=== PATIENT | male | born 2000 | race Two or more races ===

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

== ENCOUNTER 2022-04-01 14:34 | Inpatient (IN) | payer BC ==
[2022-04-01] MEDS ORDERED: ONDANSETRON 4 MG/2 ML VIAL ONE ×2 (14:40→16:17)
[2022-04-01] MEDS ORDERED: ACETAMINOPHEN 1000 MG/100 ML BAG IVPB ONE (14:54)
[2022-04-01] MEDS ORDERED: morphine CARPU-JECT 4 MG/1 ML DISP.SYRIN IVPUSH ONE (14:58)
[2022-04-01] MEDS ORDERED: morphine SULFATE 4 MG/ML VIAL ONE (15:01)
[2022-04-01] MEDS ORDERED: ACETAMINOPHEN INJECTION 100 ML IVPB ONE (15:01)
[2022-04-01] MEDS ORDERED: SODIUM CHLORIDE 0.9% 500 ML INFUS.BAG IV ONE ×2 (15:09→16:17)
[2022-04-01] MEDS ORDERED: HYDROmorphone HCL CARPU-JECT 2 MG/1 ML DISP.SYRIN IVPUSH ONE ×3 (15:23→20:43)
[2022-04-01] MEDS ORDERED: HYDROmorphone HCl 2 MG/ML VIAL ONE ×4 (15:35→20:43)
[2022-04-01 15:46] LABS: CHLORIDE 99 mmol/L (98-107); SODIUM 134 mmol/L (136-145)
[2022-04-01 15:50] LABS: ANION GAP 9 MMOL/L (8-16); CO2 25 mmol/L (21-32); MAGNESIUM 1.9 mg/dL (1.8-2.4)
[2022-04-01 15:53] LABS: GLUCOSE,RANDOM 250 mg/dL (74-106)
[2022-04-01 15:54] LABS: CREATININE 1.3 mg/dL (0.55-1.3); PHOSPHOROUS 2.6 mg/dL (2.5-4.9)
[2022-04-01 15:56] LABS: LDL CHOLESTEROL (ONLY SJRH) 85 mg/dL (5-100)
[2022-04-01] MEDS ORDERED: ONDANSETRON 4 MG/2 ML VIAL IVPUSH ONE (16:15)
[2022-04-01] MEDS ORDERED: LACTATED RINGERS SOLUTION 1,000 ML/1,000 ML INFUS.BAG IV STA (16:17)
[2022-04-01 16:33] LABS: ALBUMIN 4.2 g/dl (3.4-5.0); ALK PHOS 90 U/L (45-117); BILIRUBIN,TOTAL 1.2 mg/dL (0.2-1); BLOOD UREA NITROGEN 11.6 mg/dL (7-18); CHOLESTEROL 324 mg/dL (50-200); HDL CHOLESTEROL 32 mg/dL (40-60); LIPASE 14630 U/L (73-393); TOT PROT 7.8 g/dl (6.4-8.2); TRIGLYCERIDES > 4000 mg/dL (0-150)
[2022-04-01] MEDS ORDERED: CALCIUM GLUCONATE 10% - 1,000 MG/10 ML VIAL IVPB ONE (16:44)
[2022-04-01] MEDS ORDERED: LACTATED RINGERS SOLUTION 1,000 ML/1,000 ML INFUS.BAG IV SCH (16:45)
[2022-04-01] MEDS ORDERED: DEXTROSE 50%-WATER 25 GM/50 ML DISP.SYRIN IVPUSH PRN (16:58)
[2022-04-01] MEDS ORDERED: INSULIN REGULAR HUMAN 100 UNITS/ML *VIAL* (FOR IVP) IVPUSH ONE (16:58)
[2022-04-01] MEDS ORDERED: CALCIUM GLUCONATE 10% - 1,000 MG/10 ML VIAL ONE (17:07)
[2022-04-01] MEDS: INSULIN REGULAR 100 UNITS in SODIUM CHLORIDE 99 ML IVPB SCH ×2 (17:19→17:47)
[2022-04-01 17:25] LABS: BASO % 0.4 % (0-2.0); EOS % 0.9 % (0-4.5); HEMATOCRIT 41.1 % (35.4-49); HEMOGLOBIN 13.1 GM/dL (11.7-16.9); LYMPH % 31.4 % (8-40); MCHC 31.8 g/dl (32.0-35.9); MEAN CELL VOLUME 60.3 fl (80-96); MONO % 8.5 % (3.8-10.2); NEUT % 58.8 % (42.8-82.8); RBC 6.81 M/mm3 (4.00-5.60); RDW 17.4 % (11.9-15.9)
[2022-04-01] MEDS ORDERED: INSULIN REGULAR 100 UNITS in SODIUM CHLORIDE 99 ML IVPB SCH (17:30)
[2022-04-01] MEDS: D5-LR+20 MEQ KCL - 20 MEQ/1,000 ML INFUS.BAG IV SCH ×2 (17:38→21:55)
[2022-04-01 17:39] LABS: MCH 19.2 pg (25.7-33.7); WHITE BLOOD COUNT 16.6 K/mm3 (4.0-10.0)
[2022-04-01 17:40] LABS: MEAN PLT VOLUME 9.1 fl (7.5-11.1); PLATELET COUNT 376 10^3/uL (134-434)
[2022-04-01] MEDS: HYDROmorphone HCl 2 MG/ML VIAL IVPUSH PRN ×2 (18:17→23:00)
[2022-04-01 19:02] LABS: PH,URINE 6.5 (5.0-8.0); URINE APPEARANCE CLEAR; URINE BILIRUBIN NEGATIVE (NEGATIVE); URINE COLOR YELLOW; URINE GLUCOSE (UA) NEGATIVE (NEGATIVE); URINE KETONE NEGATIVE (NEGATIVE); URINE LEUK ESTERASE NEGATIVE (NEGATIVE); URINE NITRITE NEGATIVE (NEGATIVE); URINE PROTEIN TRACE (NEGATIVE); URINE UROBILINOGEN 0.2 mg/dL (0.2-1.0)
[2022-04-01 20:13] LABS: ANISOCYTOSIS 3+; MACROCYTOSIS 1+; OVALOCYTE 1+; PLATELET ESTIMATE NORMAL
[2022-04-01 21:59] LABS: CHLORIDE 101 mmol/L (98-107); SODIUM 133 mmol/L (136-145)
[2022-04-01 22:02] LABS: ANION GAP 9 MMOL/L (8-16); CO2 23 mmol/L (21-32); GLUCOSE,RANDOM 258 mg/dL (74-106)
[2022-04-01 22:05] LABS: CREATININE 0.8 mg/dL (0.55-1.3)
[2022-04-01 22:14] LABS: ALBUMIN 3.4 g/dl (3.4-5.0); ALK PHOS 74 U/L (45-117); BLOOD UREA NITROGEN 9.5 mg/dL (7-18); TOT PROT 6.7 g/dl (6.4-8.2)
[2022-04-01] MEDS: ENOXAPARIN NA (PORCINE) 40 MG/0.4 ML DISP.SYRIN SQ SCH (22:19)
[2022-04-01] MEDS: CHLORHEXIDINE GLUCONATE 4% CLEANSER FOR DECOLONIZATION TP SCH (22:20)
[2022-04-01] MEDS: MUPIROCIN 2% TOPICAL OINTMENT FOR DECOLONIZATION NS SCH (23:14)
[2022-04-01 23:23] LABS: TRIGLYCERIDES > 4000 mg/dL (0-150)
[2022-04-01 23:45] LABS: CHLORIDE 100 mmol/L (98-107); SODIUM 132 mmol/L (136-145)
[2022-04-01 23:48] LABS: ANION GAP 9 MMOL/L (8-16); CO2 23 mmol/L (21-32); GLUCOSE,RANDOM 266 mg/dL (74-106)
[2022-04-01 23:51] LABS: BLOOD UREA NITROGEN 9.1 mg/dL (7-18); CREATININE 0.9 mg/dL (0.55-1.3)
[2022-04-02 00:04] LABS: TRIGLYCERIDES > 4000 mg/dL (0-150)
[2022-04-02] MEDS: ONDANSETRON 4 MG/2 ML VIAL IVPUSH PRN ×2 (00:32→06:44)
[2022-04-02] MEDS ORDERED: METOCLOPRAMIDE HCL INJECTION 10 MG/2 ML VIAL IVPUSH ONE (01:19)
[2022-04-02] MEDS ORDERED: ONDANSETRON 4 MG/2 ML VIAL IVPUSH ONE (03:02)
[2022-04-02 03:11] LABS: CHLORIDE 98 mmol/L (98-107); SODIUM 129 mmol/L (136-145)
[2022-04-02] MEDS ORDERED: D5-LR+20 MEQ KCL - 20 MEQ/1,000 ML INFUS.BAG IV SCH (03:11)
[2022-04-02 03:13] LABS: CO2 23 mmol/L (21-32); GLUCOSE,RANDOM 269 mg/dL (74-106)
[2022-04-02 03:15] LABS: CREATININE 1.2 mg/dL (0.55-1.3)
[2022-04-02 03:19] LABS: ANION GAP 9 MMOL/L (8-16); BLOOD UREA NITROGEN 11.1 mg/dL (7-18)
[2022-04-02] MEDS: INSULIN REGULAR 100 UNITS in SODIUM CHLORIDE 99 ML IVPB SCH (03:22)
[2022-04-02] MEDS ORDERED: D5-NS + 20 MEQ KCL - 20 MEQ/1,000 ML INFUS.BAG IV SCH (03:30)
[2022-04-02] MEDS ORDERED: PROCHLORPERAZINE INJECTION 10 MG/2 ML VIAL IVPB ONE ×2 (03:31→07:02)
[2022-04-02] MEDS ORDERED: dilTIAZem HCL 50 MG/10 ML - 10 ML VIAL IVPUSH ONE (03:49)
[2022-04-02] MEDS ORDERED: LORazepam 2 MG/ML SDV VIAL IVPUSH ONE (03:50)
[2022-04-02] MEDS ORDERED: DEXTROSE 5%-NORMAL SALINE 1,000 ML IV SCH (04:00)
[2022-04-02] MEDS ORDERED: METOPROLOL TARTRATE 5 MG/5 ML VIAL IVPUSH ONE (04:01)
[2022-04-02] MEDS ORDERED: SODIUM CHLORIDE 500 ML IV STA (04:02)
[2022-04-02] MEDS: HYDROmorphone HCl 2 MG/ML VIAL IVPUSH PRN ×4 (04:13→22:18)
[2022-04-02] MEDS ORDERED: CALCIUM GLUCONATE 10% - 1,000 MG/10 ML VIAL IVPB ONE ×6 (05:15→23:33)
[2022-04-02 06:18] LABS: CHLORIDE 101 mmol/L (98-107); SODIUM 132 mmol/L (136-145)
[2022-04-02 06:22] LABS: ALBUMIN 3.1 g/dl (3.4-5.0); CO2 24 mmol/L (21-32); GLUCOSE,RANDOM 214 mg/dL (74-106)
[2022-04-02 07:19] LABS: ALK PHOS 64 U/L (45-117); ANION GAP 8 MMOL/L (8-16); BILIRUBIN,TOTAL 0.9 mg/dL (0.2-1); BLOOD UREA NITROGEN 13.4 mg/dL (7-18); CREATININE 1.7 mg/dL (0.55-1.3); TOT PROT 6.6 g/dl (6.4-8.2)
[2022-04-02] MEDS ORDERED: INSULIN REGULAR HUMAN 100 UNITS/ML *VIAL IVPUSH ONE (07:22)
[2022-04-02] MEDS ORDERED: DEXTROSE 50%-WATER 25 GM/50 ML DISP.SYRIN IVPUSH ONE (07:23)
[2022-04-02 07:58] LABS: CHLORIDE 103 mmol/L (98-107); SODIUM 131 mmol/L (136-145)
[2022-04-02 08:01] LABS: BASO % 0.1 % (0-2.0); HEMATOCRIT 49.8 % (35.4-49); HEMOGLOBIN 16.9 GM/dL (11.7-16.9); LYMPH % 11.1 % (8-40); MCH 20.1 pg (25.7-33.7); MCHC 33.8 g/dl (32.0-35.9); MEAN CELL VOLUME 59.4 fl (80-96); MEAN PLT VOLUME 9.4 fl (7.5-11.1); MONO % 5.9 % (3.8-10.2); NEUT % 82.9 % (42.8-82.8); PLATELET COUNT 425 10^3/uL (134-434); RDW 17.6 % (11.9-15.9); WHITE BLOOD COUNT 17.8 K/mm3 (4.0-10.0)
[2022-04-02 08:03] LABS: ALBUMIN 2.9 g/dl (3.4-5.0); GLUCOSE,RANDOM 232 mg/dL (74-106); RBC 8.39 M/mm3 (4.00-5.60)
[2022-04-02 08:05] LABS: CO2 18 mmol/L (21-32); MAGNESIUM 1.3 mg/dL (1.8-2.4)
[2022-04-02 08:07] LABS: BILIRUBIN,TOTAL 0.9 mg/dL (0.2-1); CREATININE 1.6 mg/dL (0.55-1.3)
[2022-04-02 08:14] LABS: LDH 703 U/L (87-246)
[2022-04-02 08:39] LABS: LDL CHOLESTEROL (ONLY SJRH) 109 mg/dL (5-100)
[2022-04-02 08:40] LABS: HDL CHOLESTEROL 28 mg/dL (40-60)
[2022-04-02 08:57] LABS: CHOLESTEROL 340 mg/dL (50-200); TRIGLYCERIDES > 4000 mg/dL (0-150)
[2022-04-02] MEDS ORDERED: MAGNESIUM SULFATE IN WATER 2 GM/50 ML IVPB IVPB ONE (09:00)
[2022-04-02] MEDS ORDERED: CALCIUM GLUCONATE IN NACL 1 GM/50 ML BAG IVPB ONE ×2 (09:45→12:45)
[2022-04-02] MEDS ORDERED: ENOXAPARIN NA (PORCINE) 40 MG/0.4 ML DISP.SYRIN SQ SCH (10:00)
[2022-04-02] MEDS ORDERED: DEXAMETHASONE SOD PHOSPHATE 10 MG/1 ML VIAL IVPUSH SCH (10:00)
[2022-04-02 10:12] LABS: ALK PHOS 60 U/L (45-117); LIPASE 7201 U/L (73-393); PHOSPHOROUS 0.8 mg/dL (2.5-4.9); TRIGLYCERIDES 3791 mg/dL (0-150)
[2022-04-02 10:14] LABS: ANION GAP 10 MMOL/L (8-16); BLOOD UREA NITROGEN 15.4 mg/dL (7-18); TOT PROT 6.3 g/dl (6.4-8.2)
[2022-04-02] MEDS: MUPIROCIN 2% TOPICAL OINTMENT FOR DECOLONIZATION NS SCH ×2 (11:02→22:06)
[2022-04-02] MEDS: CALCIUM GLUCONATE 10% - 1,000 MG/10 ML VIAL IVPUSH SCH ×2 (11:04→17:53)
[2022-04-02 11:10] LABS: BASO % 0.1 % (0-2.0); HEMATOCRIT 48.3 % (35.4-49); HEMOGLOBIN 16.1 GM/dL (11.7-16.9); LYMPH % 10.5 % (8-40); MCHC 33.3 g/dl (32.0-35.9); MEAN CELL VOLUME 59.3 fl (80-96); NEUT % 83.4 % (42.8-82.8); PLATELET COUNT 367 10^3/uL (134-434); RDW 17.5 % (11.9-15.9); WHITE BLOOD COUNT 18.2 K/mm3 (4.0-10.0)
[2022-04-02 11:15] LABS: MCH 19.8 pg (25.7-33.7); RBC 8.15 M/mm3 (4.00-5.60)
[2022-04-02 11:31] LABS: CHLORIDE 104 mmol/L (98-107); SODIUM 135 mmol/L (136-145)
[2022-04-02 11:34] LABS: ALBUMIN 2.7 g/dl (3.4-5.0); GLUCOSE,RANDOM 171 mg/dL (74-106)
[2022-04-02 11:35] LABS: ANION GAP 10 MMOL/L (8-16); CO2 21 mmol/L (21-32); MAGNESIUM 1.7 mg/dL (1.8-2.4)
[2022-04-02 11:36] LABS: CREATININE 1.8 mg/dL (0.55-1.3); PHOSPHOROUS 2.4 mg/dL (2.5-4.9)
[2022-04-02 11:38] LABS: BILIRUBIN,TOTAL 0.7 mg/dL (0.2-1)
[2022-04-02 11:39] LABS: ALK PHOS 61 U/L (45-117)
[2022-04-02 11:42] LABS: BLOOD UREA NITROGEN 17.1 mg/dL (7-18); CALCIUM 5.1 mg/dL (8.5-10.1)
[2022-04-02 11:43] LABS: TRIGLYCERIDES 3088 mg/dL (0-150)
[2022-04-02] MEDS ORDERED: ALBUMIN HUMAN 5% 500 ML IV SOLUTION IV ONE (12:00)
[2022-04-02 12:08] LABS: INR 1.58 (0.83-1.09); PROTHROMBIN TIME (PATIENT) 18.3 SEC (9.7-13.0)
[2022-04-02 12:09] LABS: ACTIVATED PTT 31.6 SECONDS (25.2-36.5)
[2022-04-02 12:18] LABS: TOTAL IRON BINDING CAPACITY 110 ug/dL (250-450)
[2022-04-02 12:20] LABS: IRON SERUM 31 ug/dL (50-175)
[2022-04-02] MEDS ORDERED: ACETAMINOPHEN 1000 MG/100 ML BAG IVPB ONE (13:30)
[2022-04-02] MEDS ORDERED: SODIUM CHLORIDE 0.9% 500 ML INFUS.BAG IV ONE (15:33)
[2022-04-02] MEDS: CALCIUM GLUCONATE IN NACL 1 GM/50 ML BAG IVPB SCH ×3 (16:04→23:05)
[2022-04-02 16:36] LABS: HEMATOCRIT 49.3 % (35.4-49); HEMOGLOBIN 15.8 GM/dL (11.7-16.9); MEAN CELL VOLUME 59.9 fl (80-96); MEAN PLT VOLUME 9.2 fl (7.5-11.1); RDW 17.9 % (11.9-15.9); WHITE BLOOD COUNT 18.6 K/mm3 (4.0-10.0)
[2022-04-02 16:39] LABS: MCH 19.2 pg (25.7-33.7); RBC 8.23 M/mm3 (4.00-5.60)
[2022-04-02 16:55] LABS: MAGNESIUM 1.5 mg/dL (1.8-2.4)
[2022-04-02 16:55] LABS: CHLORIDE 111 mmol/L (98-107); SODIUM 139 mmol/L (136-145)
[2022-04-02 16:57] LABS: ANION GAP 9 MMOL/L (8-16); BLOOD UREA NITROGEN 18.5 mg/dL (7-18); CO2 20 mmol/L (21-32); GLUCOSE,RANDOM 129 mg/dL (74-106)
[2022-04-02 17:01] LABS: CREATININE 1.5 mg/dL (0.55-1.3)
[2022-04-02 17:02] LABS: BILIRUBIN,TOTAL 0.5 mg/dL (0.2-1); TOT PROT 5.2 g/dl (6.4-8.2)
[2022-04-02] MEDS: ENOXAPARIN NA (PORCINE) 40 MG/0.4 ML DISP.SYRIN SQ SCH (17:12)
[2022-04-02 17:15] LABS: ALBUMIN 3.7 g/dl (3.4-5.0); ALK PHOS 30 U/L (45-117); CALCIUM 5.5 mg/dL (8.5-10.1); SGOT/AST 41 U/L (15-37); SGPT/ALT 27 U/L (13-61); TRIGLYCERIDES 1044 mg/dL (0-150)
[2022-04-02] MEDS ORDERED: MAGNESIUM SULF 50% (8.12 MEQ/2 ML-1 GM VIAL) IVPB ONE ×2 (17:33→17:53)
[2022-04-02] MEDS ORDERED: SODIUM CHLORIDE 1,000 ML IV STA (17:43)
[2022-04-02 17:44] LABS: PLATELET COUNT 232 10^3/uL (134-434)
[2022-04-02] MEDS: FENOFIBRIC ACID 135 MG CAP PO SCH (17:44)
[2022-04-02] MEDS ORDERED: HYDROmorphone HCL CARPU-JECT 2 MG/1 ML DISP.SYRIN IVPUSH SCH (18:19)
[2022-04-02 19:08] LABS: EPI CELLS 25 /uL (0-25.1); HYALINE CASTS 40 /uL (0-3.1); PH,URINE 5.5 (5.0-8.0); URINE APPEARANCE CLOUDY; URINE BACTERIA 8 /uL (0-1359); URINE BILIRUBIN NEGATIVE (NEGATIVE); URINE COLOR DK YELLOW; URINE GLUCOSE (UA) 1+ (NEGATIVE); URINE KETONE TRACE (NEGATIVE); URINE LEUK ESTERASE NEGATIVE (NEGATIVE); URINE NITRITE NEGATIVE (NEGATIVE); URINE PROTEIN 1+ (NEGATIVE); URINE RBC 8 /uL (0-23.9); URINE UROBILINOGEN 0.2 mg/dL (0.2-1.0); URINE WBC 9 /uL (0-25.8)
[2022-04-02 20:48] LABS: ALBUMIN 3.1 g/dl (3.4-5.0); ANION GAP 6 MMOL/L (8-16); BLOOD UREA NITROGEN 16.3 mg/dL (7-18); CHLORIDE 115 mmol/L (98-107); CO2 20 mmol/L (21-32); GLUCOSE,RANDOM 120 mg/dL (74-106); MAGNESIUM 2.9 mg/dL (1.8-2.4); SODIUM 141 mmol/L (136-145)
[2022-04-02 20:50] LABS: SGOT/AST 41 U/L (15-37)
[2022-04-02 20:51] LABS: CHOLESTEROL 140 mg/dL (50-200)
[2022-04-02 20:52] LABS: TOT PROT 4.6 g/dl (6.4-8.2); TRIGLYCERIDES 909 mg/dL (0-150)
[2022-04-02 20:53] LABS: BILIRUBIN,TOTAL 0.4 mg/dL (0.2-1); HDL CHOLESTEROL 10 mg/dL (40-60); LDL CHOLESTEROL (ONLY SJRH) 15 mg/dL (5-100)
[2022-04-02 20:54] LABS: ALK PHOS 31 U/L (45-117)
[2022-04-02 21:02] LABS: CALCIUM 5.9 mg/dL (8.5-10.1); SGPT/ALT 22 U/L (13-61)
[2022-04-02] MEDS: CALCIUM GLUCONATE 10% - 1,000 MG/10 ML VIAL IVPB SCH ×2 (21:25→22:15)
[2022-04-02] MEDS ORDERED: DEXTROSE 5%-NORMAL SALINE 1,000 ML IV ONE (22:00)
[2022-04-02] MEDS: ROSUVASTATIN CA 10 MG TABLET PO SCH (22:06)
[2022-04-02] MEDS: CHLORHEXIDINE GLUCONATE 4% CLEANSER FOR DECOLONIZATION TP SCH (22:07)
[2022-04-02] MEDS ORDERED: DEXTROSE 5%-LACTATED RINGERS 1,000 ML IV ONE (22:29)
[2022-04-02] MEDS: DEXTROSE 5%-LACTATED RINGERS 1,000 ML IV SCH (22:39)
[2022-04-02] MEDS ORDERED: HYDROmorphone HCl 2 MG/ML VIAL IVPUSH ONE (23:09)
[2022-04-02 23:17] LABS: CHLORIDE 113 mmol/L (98-107); SODIUM 140 mmol/L (136-145)
[2022-04-02 23:18] LABS: ANION GAP 9 MMOL/L (8-16); CO2 18 mmol/L (21-32); MAGNESIUM 2.4 mg/dL (1.8-2.4)
[2022-04-02 23:19] LABS: ALBUMIN 2.9 g/dl (3.4-5.0); BLOOD UREA NITROGEN 13.8 mg/dL (7-18); GLUCOSE,RANDOM 181 mg/dL (74-106)
[2022-04-02 23:21] LABS: CREATININE 0.9 mg/dL (0.55-1.3); SGOT/AST 37 U/L (15-37); SGPT/ALT 24 U/L (13-61)
[2022-04-02 23:23] LABS: CHOLESTEROL 144 mg/dL (50-200); PHOSPHOROUS 2.4 mg/dL (2.5-4.9)
[2022-04-02 23:24] LABS: BILIRUBIN,TOTAL 0.5 mg/dL (0.2-1); HDL CHOLESTEROL 11 mg/dL (40-60); LDL CHOLESTEROL (ONLY SJRH) 15 mg/dL (5-100); TOT PROT 4.6 g/dl (6.4-8.2); TRIGLYCERIDES 917 mg/dL (0-150)
[2022-04-02 23:26] LABS: ALK PHOS 32 U/L (45-117)
[2022-04-02 23:30] LABS: CALCIUM 6.5 mg/dL (8.5-10.1)
[2022-04-03] MEDS ORDERED: DEXTROSE 50%-WATER - 25 GM/50 ML VIAL IVPUSH PRN ×2 (01:19→18:39)
[2022-04-03] MEDS: ONDANSETRON 4 MG/2 ML VIAL IVPUSH PRN (02:10)
[2022-04-03] MEDS: INSULIN REGULAR 100 UNITS in SODIUM CHLORIDE 99 ML IVPB SCH (02:49)
[2022-04-03] MEDS: HYDROmorphone HCl 2 MG/ML VIAL IVPUSH PRN ×5 (03:16→22:40)
[2022-04-03] MEDS: CALCIUM GLUCONATE IN NACL 1 GM/50 ML BAG IVPB SCH ×5 (03:49→19:03)
[2022-04-03] MEDS: DEXTROSE 5%-LACTATED RINGERS 1,000 ML IV SCH ×2 (05:57→23:20)
[2022-04-03 07:17] LABS: ALBUMIN 2.8 g/dl (3.4-5.0); BLOOD UREA NITROGEN 12.1 mg/dL (7-18); CALCIUM 7.3 mg/dL (8.5-10.1)
[2022-04-03 07:18] LABS: PHOSPHOROUS 2.6 mg/dL (2.5-4.9)
[2022-04-03 07:20] LABS: CREATININE 0.8 mg/dL (0.55-1.3)
[2022-04-03 07:22] LABS: BILIRUBIN,TOTAL 0.4 mg/dL (0.2-1); TOT PROT 4.6 g/dl (6.4-8.2)
[2022-04-03] MEDS ORDERED: DEXTROSE 50%-WATER 25 GM/50 ML DISP.SYRIN ONE ×4 (07:38→22:54)
[2022-04-03] MEDS ORDERED: DEXTROSE 50%-WATER 25 GM/50 ML DISP.SYRIN IVPUSH PRN (08:12)
[2022-04-03] MEDS ORDERED: CALCIUM GLUCONATE IN NACL 1 GM/50 ML BAG IVPB ONE (08:45)
[2022-04-03 09:18] LABS: EOS % 0.1 % (0-4.5); HEMATOCRIT 40.9 % (35.4-49); LYMPH % 10.3 % (8-40); MCHC 31.7 g/dl (32.0-35.9); MEAN CELL VOLUME 59.5 fl (80-96); MEAN PLT VOLUME 9.4 fl (7.5-11.1); MONO % 9.5 % (3.8-10.2); NEUT % 80.1 % (42.8-82.8); PLATELET COUNT 187 10^3/uL (134-434); RBC 6.88 M/mm3 (4.00-5.60); WHITE BLOOD COUNT 13.6 K/mm3 (4.0-10.0)
[2022-04-03 09:20] LABS: MCH 18.9 pg (25.7-33.7)
[2022-04-03] MEDS: MUPIROCIN 2% TOPICAL OINTMENT FOR DECOLONIZATION NS SCH ×2 (09:40→22:52)
[2022-04-03] MEDS: LIDOCAINE 5% TOPICAL PATCH TP SCH (09:40)
[2022-04-03] MEDS: ENOXAPARIN NA (PORCINE) 40 MG/0.4 ML DISP.SYRIN SQ SCH (09:41)
[2022-04-03] MEDS ORDERED: ALBUMIN HUMAN 5% 250 ML IV SOLUTION IV ONE (10:30)
[2022-04-03] MEDS ORDERED: ALBUMIN HUMAN IV ONE (12:00)
[2022-04-03] MEDS ORDERED: HYDROmorphone HCl 2 MG/ML VIAL IVPUSH ONE ×2 (12:15→17:07)
[2022-04-03] MEDS: FENOFIBRIC ACID 135 MG CAP PO SCH (12:39)
[2022-04-03] MEDS: DEXTROSE 50%-WATER 25 GM/50 ML DISP.SYRIN IVPUSH PRN ×3 (12:40→22:00)
[2022-04-03 13:45] LABS: CHLORIDE 111 mmol/L (98-107); SODIUM 140 mmol/L (136-145)
[2022-04-03 13:47] LABS: CALCIUM 7.6 mg/dL (8.5-10.1)
[2022-04-03 13:49] LABS: ANION GAP 9 MMOL/L (8-16); CO2 20 mmol/L (21-32); MAGNESIUM 2.2 mg/dL (1.8-2.4)
[2022-04-03 13:50] LABS: BLOOD UREA NITROGEN 13.7 mg/dL (7-18); GLUCOSE,RANDOM 75 mg/dL (74-106)
[2022-04-03 13:51] LABS: CREATININE 0.7 mg/dL (0.55-1.3); SGOT/AST 43 U/L (15-37); SGPT/ALT 24 U/L (13-61)
[2022-04-03 13:53] LABS: ALK PHOS 46 U/L (45-117); PHOSPHOROUS 2.3 mg/dL (2.5-4.9); TOT PROT 5.1 g/dl (6.4-8.2)
[2022-04-03 13:54] LABS: CHOLESTEROL 157 mg/dL (50-200)
[2022-04-03 13:56] LABS: BILIRUBIN,TOTAL 0.4 mg/dL (0.2-1); HDL CHOLESTEROL 10 mg/dL (40-60); LDL CHOLESTEROL (ONLY SJRH) 22 mg/dL (5-100)
[2022-04-03 14:01] LABS: TRIGLYCERIDES > 1000 mg/dL (0-150)
[2022-04-03] MEDS ORDERED: ALBUMIN HUMAN 25% 12.5 GM/50 ML VIAL IV ONE (17:26)
[2022-04-03] MEDS ORDERED: LORazepam 2 MG/ML SDV VIAL IVPUSH ONE (17:28)
[2022-04-03] MEDS ORDERED: ALBUMIN HUMAN 25% 12.5 GM/50 ML VIAL IV SCH (17:30)
[2022-04-03] MEDS ORDERED: ALBUMIN HUMAN 25% 100 ML VIAL IV ONE (17:45)
[2022-04-03] MEDS ORDERED: ALBUMIN HUMAN 5% 500 ML IV SOLUTION IV ONE (18:00)
[2022-04-03 19:59] LABS: BASO % 0.2 % (0-2.0); EOS % 0.6 % (0-4.5); HEMATOCRIT 31.1 % (35.4-49); MCHC 32.1 g/dl (32.0-35.9); MEAN CELL VOLUME 58.9 fl (80-96); MEAN PLT VOLUME 8.8 fl (7.5-11.1); MONO % 7.9 % (3.8-10.2); NEUT % 79.3 % (42.8-82.8); PLATELET COUNT 175 10^3/uL (134-434); RBC 5.27 M/mm3 (4.00-5.60); RDW 17.4 % (11.9-15.9); WHITE BLOOD COUNT 8.7 K/mm3 (4.0-10.0)
[2022-04-03 20:01] LABS: MCH 18.9 pg (25.7-33.7)
[2022-04-03 20:04] LABS: CHLORIDE 110 mmol/L (98-107); SODIUM 138 mmol/L (136-145)
[2022-04-03] MEDS ORDERED: DEXTROSE 5%-LACTATED RINGERS 990 ML with POTASSIUM CHLORIDE 20 MEQ IV SCH ×2 (20:06→20:45)
[2022-04-03 20:08] LABS: ANION GAP 13 MMOL/L (8-16); BLOOD UREA NITROGEN 9.2 mg/dL (7-18); CO2 16 mmol/L (21-32); MAGNESIUM 1.4 mg/dL (1.8-2.4)
[2022-04-03 20:10] LABS: SGPT/ALT 16 U/L (13-61)
[2022-04-03 20:11] LABS: CREATININE 0.7 mg/dL (0.55-1.3); SGOT/AST 28 U/L (15-37)
[2022-04-03 20:12] LABS: BILIRUBIN,TOTAL 0.2 mg/dL (0.2-1); TOT PROT 4.2 g/dl (6.4-8.2)
[2022-04-03 20:14] LABS: ALK PHOS 25 U/L (45-117)
[2022-04-03 20:19] LABS: CALCIUM 14.5 mg/dL (8.5-10.1); GLUCOSE,RANDOM 411 mg/dL (74-106)
[2022-04-03] MEDS ORDERED: MAGNESIUM SULFATE IN WATER 2 GM/50 ML IVPB IVPB ONE (20:32)
[2022-04-03] MEDS: LORazepam 2 MG/ML SDV VIAL IVPUSH PRN (20:36)
[2022-04-03 21:23] LABS: INR 1.34 (0.83-1.09); PROTHROMBIN TIME (PATIENT) 15.4 SEC (9.7-13.0)
[2022-04-03 21:26] LABS: ACTIVATED PTT 28.4 SECONDS (25.2-36.5)
[2022-04-03] MEDS ORDERED: POTASSIUM CHLORIDE 20 MEQ in DEXTROSE 5%-LACTATED RINGERS 990 ML IV SCH (21:28)
[2022-04-03 21:35] LABS: EOS % 0.9 % (0-4.5); MONO % 7.7 % (3.8-10.2)
[2022-04-03 21:38] LABS: BASO % 0.3 % (0-2.0); HEMATOCRIT 33.6 % (35.4-49); LYMPH % 15.1 % (8-40); MCHC 32.8 g/dl (32.0-35.9); MEAN PLT VOLUME 8.7 fl (7.5-11.1); PLATELET COUNT 187 10^3/uL (134-434); RDW 17.2 % (11.9-15.9); WHITE BLOOD COUNT 9.9 K/mm3 (4.0-10.0)
[2022-04-03] MEDS ORDERED: LACTATED RINGERS SOLUTION 1,000 ML/1,000 ML INFUS.BAG IV STA (21:42)
[2022-04-03 21:44] LABS: ALBUMIN 3.1 g/dl (3.4-5.0); BLOOD UREA NITROGEN 11.3 mg/dL (7-18); MAGNESIUM 1.9 mg/dL (1.8-2.4)
[2022-04-03 21:48] LABS: BILIRUBIN,TOTAL 0.5 mg/dL (0.2-1); CREATININE 0.7 mg/dL (0.55-1.3); TOT PROT 4.9 g/dl (6.4-8.2)
[2022-04-03 21:57] LABS: CALCIUM 7.5 mg/dL (8.5-10.1)
[2022-04-03] MEDS: ROSUVASTATIN CA 10 MG TABLET PO SCH (22:52)
[2022-04-03] MEDS: LIDOCAINE PATCH REMOVAL MC SCH (22:52)
[2022-04-03] MEDS: CHLORHEXIDINE GLUCONATE 4% CLEANSER FOR DECOLONIZATION TP SCH (22:52)
[2022-04-04] MEDS ORDERED: LORazepam 2 MG/ML SDV VIAL IVPUSH ONE ×2 (00:01→02:42)
[2022-04-04] MEDS: DEXTROSE 50%-WATER 25 GM/50 ML DISP.SYRIN IVPUSH PRN ×6 (00:20→21:09)
[2022-04-04] MEDS ORDERED: DEXTROSE 50%-WATER 25 GM/50 ML DISP.SYRIN ONE ×2 (01:22→03:05)
[2022-04-04] MEDS: INSULIN REGULAR 100 UNITS in SODIUM CHLORIDE 99 ML IVPB SCH (03:10)
[2022-04-04] MEDS ORDERED: HYDROmorphone HCl 2 MG/ML VIAL ONE (03:37)
[2022-04-04] MEDS ORDERED: HYDROmorphone HCl 2 MG/ML VIAL IVPUSH ONE (03:39)
[2022-04-04] MEDS: ONDANSETRON 4 MG/2 ML VIAL IVPUSH PRN (03:40)
[2022-04-04] MEDS: DEXTROSE 5%-LACTATED RINGERS 1,000 ML IV SCH (05:41)
[2022-04-04] MEDS: HYDROmorphone HCl 2 MG/ML VIAL IVPUSH PRN ×3 (06:28→22:54)
[2022-04-04 09:00] LABS: BASO % 0.2 % (0-2.0); EOS % 2.1 % (0-4.5); HEMATOCRIT 31.3 % (35.4-49); HEMOGLOBIN 10.6 GM/dL (11.7-16.9); LYMPH % 15.3 % (8-40); MCH 19.6 pg (25.7-33.7); MCHC 33.8 g/dl (32.0-35.9); MEAN CELL VOLUME 57.9 fl (80-96); MEAN PLT VOLUME 8.3 fl (7.5-11.1); MONO % 8.4 % (3.8-10.2); PLATELET COUNT 185 10^3/uL (134-434); RDW 17.6 % (11.9-15.9); WHITE BLOOD COUNT 8.6 K/mm3 (4.0-10.0)
[2022-04-04] MEDS ORDERED: FUROSEMIDE 40 MG/4 ML INJECTABLE VIAL IVPUSH ONE ×2 (09:15→16:48)
[2022-04-04 09:19] LABS: PLATELET ESTIMATE ADEQUATE
[2022-04-04 09:29] LABS: ALBUMIN 3.1 g/dl (3.4-5.0); BLOOD UREA NITROGEN 10.2 mg/dL (7-18); CALCIUM 7.5 mg/dL (8.5-10.1); MAGNESIUM 2.2 mg/dL (1.8-2.4)
[2022-04-04 09:33] LABS: CREATININE 0.7 mg/dL (0.55-1.3); PHOSPHOROUS 2.2 mg/dL (2.5-4.9)
[2022-04-04 09:34] LABS: BILIRUBIN,TOTAL 0.5 mg/dL (0.2-1); TOT PROT 5.3 g/dl (6.4-8.2)
[2022-04-04] MEDS: FENOFIBRIC ACID 135 MG CAP PO SCH (10:00)
[2022-04-04] MEDS: MUPIROCIN 2% TOPICAL OINTMENT FOR DECOLONIZATION NS SCH ×2 (10:29→21:09)
[2022-04-04] MEDS: ENOXAPARIN NA (PORCINE) 40 MG/0.4 ML DISP.SYRIN SQ SCH (10:30)
[2022-04-04] MEDS: LIDOCAINE 5% TOPICAL PATCH TP SCH (10:30)
[2022-04-04] MEDS ORDERED: LACTATED RINGERS IV SCH ×2 (12:15)
[2022-04-04] MEDS ORDERED: [UNRECOGNIZED DRUG - OTHER] IV SCH ×2 (12:15)
[2022-04-04] MEDS ORDERED: DEXTROSE IV SCH ×2 (12:15)
[2022-04-04] MEDS: LORazepam 2 MG/ML SDV VIAL IVPUSH PRN (16:52)
[2022-04-04 17:04] LABS: ALBUMIN 2.9 g/dl (3.4-5.0); CALCIUM 7.4 mg/dL (8.5-10.1)
[2022-04-04 17:05] LABS: BLOOD UREA NITROGEN 9.8 mg/dL (7-18)
[2022-04-04 17:08] LABS: CREATININE 0.7 mg/dL (0.55-1.3)
[2022-04-04 17:09] LABS: TOT PROT 5.1 g/dl (6.4-8.2)
[2022-04-04 17:10] LABS: BILIRUBIN,TOTAL 0.4 mg/dL (0.2-1)
[2022-04-04] MEDS ORDERED: MEROPENEM 1 GM in DEXTROSE 5%-WATER 100 ML IVPB SCH (18:30)
[2022-04-04] MEDS ORDERED: CALCIUM GLUC IN NACL, ISO-OSM 1 GM/50 ML BAG IVPB ONE (18:40)
[2022-04-04] MEDS: ROSUVASTATIN CA 10 MG TABLET PO SCH (21:08)
[2022-04-04] MEDS: CHLORHEXIDINE GLUCONATE 4% CLEANSER FOR DECOLONIZATION TP SCH (21:10)
[2022-04-04] MEDS: LIDOCAINE PATCH REMOVAL MC SCH (21:10)
[2022-04-04 23:05] LABS: MAGNESIUM 1.6 mg/dL (1.8-2.4)
[2022-04-04 23:09] LABS: PHOSPHOROUS 2.6 mg/dL (2.5-4.9)
[2022-04-05] MEDS: DEXTROSE 50%-WATER 25 GM/50 ML DISP.SYRIN IVPUSH PRN ×3 (00:20→06:23)
[2022-04-05] MEDS ORDERED: MEROPENEM 1 GM in DEXTROSE 5%-WATER 100 ML IVPB SCH (02:00)
[2022-04-05] MEDS: INSULIN REGULAR 100 UNITS in SODIUM CHLORIDE 99 ML IVPB SCH ×2 (04:03→06:24)
[2022-04-05 08:01] LABS: BASO % 0.2 % (0-2.0); EOS % 3.1 % (0-4.5); HEMATOCRIT 27.9 % (35.4-49); HEMOGLOBIN 9.3 GM/dL (11.7-16.9); LYMPH % 12.8 % (8-40); MCHC 33.2 g/dl (32.0-35.9); MEAN CELL VOLUME 57.4 fl (80-96); MEAN PLT VOLUME 8.4 fl (7.5-11.1); MONO % 10.7 % (3.8-10.2); NEUT % 73.2 % (42.8-82.8); PLATELET COUNT 183 10^3/uL (134-434); RBC 4.86 M/mm3 (4.00-5.60); RDW 16.8 % (11.9-15.9); WHITE BLOOD COUNT 9.1 K/mm3 (4.0-10.0)
[2022-04-05 08:13] LABS: MCH 19.1 pg (25.7-33.7)
[2022-04-05 08:21] LABS: CALCIUM 7.9 mg/dL (8.5-10.1)
[2022-04-05 08:22] LABS: MAGNESIUM 1.8 mg/dL (1.8-2.4)
[2022-04-05 08:23] LABS: ALBUMIN 2.8 g/dl (3.4-5.0); BLOOD UREA NITROGEN 6.9 mg/dL (7-18)
[2022-04-05 08:25] LABS: CREATININE 0.6 mg/dL (0.55-1.3)
[2022-04-05 08:26] LABS: PHOSPHOROUS 3.2 mg/dL (2.5-4.9); TOT PROT 5.3 g/dl (6.4-8.2)
[2022-04-05 08:28] LABS: BILIRUBIN,TOTAL 0.4 mg/dL (0.2-1)
[2022-04-05] MEDS ORDERED: FUROSEMIDE 40 MG/4 ML INJECTABLE VIAL IVPUSH ONE (09:09)
[2022-04-05 09:34] LABS: ANISOCYTOSIS 3+; MACROCYTOSIS 0; TARGET CELLS 2+
[2022-04-05] MEDS: MUPIROCIN 2% TOPICAL OINTMENT FOR DECOLONIZATION NS SCH ×2 (09:41→21:38)
[2022-04-05] MEDS: POTASSIUM CHLORIDE ORAL LIQUID 20 MEQ/15 ML PO SCH ×2 (09:41→13:44)
[2022-04-05] MEDS: PANTOPRAZOLE SODIUM 40 MG VIAL IVPUSH SCH (09:42)
[2022-04-05] MEDS: FENOFIBRIC ACID 135 MG CAP PO SCH (09:42)
[2022-04-05] MEDS: ENOXAPARIN NA (PORCINE) 40 MG/0.4 ML DISP.SYRIN SQ SCH (09:42)
[2022-04-05] MEDS: LIDOCAINE 5% TOPICAL PATCH TP SCH (09:42)
[2022-04-05] MEDS ORDERED: MAG HYDROX/AL HYDROX/SIMETH 30 ML UNIT-DOSE CUP PO PRN (15:13)
[2022-04-05] MEDS ORDERED: IRON SUCROSE INJECTION 200 MG in SODIUM CHLORIDE 90 ML IVPB ONE (17:02)
[2022-04-05] MEDS: CHLORHEXIDINE GLUCONATE 4% CLEANSER FOR DECOLONIZATION TP SCH (21:38)
[2022-04-05] MEDS: LIDOCAINE PATCH REMOVAL MC SCH (21:38)
[2022-04-05] MEDS: ROSUVASTATIN CA 10 MG TABLET PO SCH (21:38)
[2022-04-05] MEDS ORDERED: MELATONIN 5 MG TABLETS PO ONE (22:21)
[2022-04-06 07:47] LABS: BASO % 0.2 % (0-2.0); HEMATOCRIT 28.3 % (35.4-49); HEMOGLOBIN 9.2 GM/dL (11.7-16.9); LYMPH % 10.7 % (8-40); MCHC 32.5 g/dl (32.0-35.9); MEAN PLT VOLUME 8.8 fl (7.5-11.1); MONO % 15.2 % (3.8-10.2); NEUT % 70.9 % (42.8-82.8); PLATELET COUNT 209 10^3/uL (134-434); RBC 4.89 M/mm3 (4.00-5.60); RDW 16.6 % (11.9-15.9); RETICULOCYTES 1.31 % (0.5-1.5); WHITE BLOOD COUNT 9.6 K/mm3 (4.0-10.0)
[2022-04-06 08:04] LABS: MCH 18.8 pg (25.7-33.7)
[2022-04-06 08:10] LABS: CALCIUM 8.4 mg/dL (8.5-10.1)
[2022-04-06 08:11] LABS: BLOOD UREA NITROGEN 10.4 mg/dL (7-18)
[2022-04-06 08:13] LABS: CREATININE 0.6 mg/dL (0.55-1.3)
[2022-04-06 08:14] LABS: PHOSPHOROUS 4.3 mg/dL (2.5-4.9)
[2022-04-06 08:15] LABS: BILIRUBIN,TOTAL 0.4 mg/dL (0.2-1); TOT PROT 5.8 g/dl (6.4-8.2)
[2022-04-06] MEDS ORDERED: FUROSEMIDE 40 MG/4 ML INJECTABLE VIAL IVPUSH ONE (09:11)
[2022-04-06] MEDS ORDERED: POTASSIUM CHLORIDE TABS 10 MEQ TABLET.ER (FP) PO ONE (09:11)
[2022-04-06] MEDS: LIDOCAINE 5% TOPICAL PATCH TP SCH (10:30)
[2022-04-06] MEDS: MUPIROCIN 2% TOPICAL OINTMENT FOR DECOLONIZATION NS SCH (10:30)
[2022-04-06] MEDS: PANTOPRAZOLE SODIUM 40 MG VIAL IVPUSH SCH (10:31)
[2022-04-06] MEDS: FENOFIBRIC ACID 135 MG CAP PO SCH (10:31)
[2022-04-06] MEDS: ENOXAPARIN NA (PORCINE) 40 MG/0.4 ML DISP.SYRIN SQ SCH (10:31)
[2022-04-06] MEDS ORDERED: ACETAMINOPHEN 325 MG TABLET (FP) PO PRN (17:56)
[2022-04-06 18:20] LABS: CALCIUM 8.6 mg/dL (8.5-10.1)
[2022-04-06 18:21] LABS: ALBUMIN 3.2 g/dl (3.4-5.0); BLOOD UREA NITROGEN 9.9 mg/dL (7-18)
[2022-04-06 18:24] LABS: CREATININE 0.6 mg/dL (0.55-1.3)
[2022-04-06 18:25] LABS: BILIRUBIN,TOTAL 0.4 mg/dL (0.2-1); TOT PROT 6.4 g/dl (6.4-8.2)
[2022-04-06] MEDS: CHLORHEXIDINE GLUCONATE 4% CLEANSER FOR DECOLONIZATION TP SCH (22:05)
[2022-04-06] MEDS: LIDOCAINE PATCH REMOVAL MC SCH (22:05)
[2022-04-07] MEDS ORDERED: MELATONIN 5 MG TABLETS PO ONE (02:25)
[2022-04-07 08:04] LABS: BASO % 0.3 % (0-2.0); HEMATOCRIT 29.2 % (35.4-49); HEMOGLOBIN 9.4 GM/dL (11.7-16.9); LYMPH % 14.7 % (8-40); MCHC 32.3 g/dl (32.0-35.9); MEAN CELL VOLUME 58.1 fl (80-96); MEAN PLT VOLUME 8.7 fl (7.5-11.1); MONO % 17.5 % (3.8-10.2); NEUT % 64.5 % (42.8-82.8); PLATELET COUNT 272 10^3/uL (134-434); RBC 5.03 M/mm3 (4.00-5.60); RDW 16.6 % (11.9-15.9); WHITE BLOOD COUNT 10.4 K/mm3 (4.0-10.0)
[2022-04-07 08:09] LABS: MCH 18.8 pg (25.7-33.7)
[2022-04-07 08:12] LABS: ALBUMIN 3.3 g/dl (3.4-5.0); CALCIUM 8.9 mg/dL (8.5-10.1)
[2022-04-07 08:15] LABS: CREATININE 0.6 mg/dL (0.55-1.3)
[2022-04-07 08:16] LABS: TOT PROT 6.6 g/dl (6.4-8.2)
[2022-04-07 08:17] LABS: BILIRUBIN,TOTAL 0.4 mg/dL (0.2-1); PHOSPHOROUS 4.3 mg/dL (2.5-4.9)
[2022-04-07] MEDS: LIDOCAINE 5% TOPICAL PATCH TP SCH (10:10)
[2022-04-07] MEDS: PANTOPRAZOLE SODIUM 40 MG VIAL IVPUSH SCH (10:11)
[2022-04-07] MEDS: FENOFIBRIC ACID 135 MG CAP PO SCH (10:11)
[2022-04-07] MEDS: ENOXAPARIN NA (PORCINE) 40 MG/0.4 ML DISP.SYRIN SQ SCH (10:11)
[2022-04-07 11:21] VITALS: RESP 17
[2022-04-07 13:32] VITALS: BP 133/77; PULSE 85; TEMP 98.5
[2022-04-07 13:52] VITALS: BMI 28.5
[2022-04-07] MEDS ORDERED: IRON SUCROSE INJECTION 200 MG in SODIUM CHLORIDE 90 ML IVPB ONE (14:00)
== END 2022-04-07 16:23 | disposition home or self-care (01) | DRG 438 ==
LOC: JER 14:34 → JERBED 15:39 → JICU 22:04
PROVIDERS: ADMIT Family Medicine; ATTEND Internal Medicine Pulmonary Disease
PROC: 6A551Z3 Pheresis of Plasma, Multiple (ICD-10-PCS; principal; 2022-04-01)
PROC: 02HV33Z Insertion of Infusion Device into Superior Vena Cava, Percutaneous Approach (ICD-10-PCS; 2022-04-04)
PROC: B518ZZA Fluoroscopy of Superior Vena Cava, Guidance (ICD-10-PCS; 2022-04-04)
DX: K85.90 Acute pancreatitis without necrosis or infection, unspecified (principal); U07.1 COVID-19; N17.9 Acute kidney failure, unspecified; J90 Pleural effusion, not elsewhere classified; I82.612 Acute embolism and thrombosis of superficial veins of left upper extremity; E78.1 Pure hyperglyceridemia; E78.2 Mixed hyperlipidemia; D56.3 Thalassemia minor; E83.51 Hypocalcemia; R73.9 Hyperglycemia, unspecified; D72.829 Elevated white blood cell count, unspecified; I95.9 Hypotension, unspecified; E87.5 Hyperkalemia; R09.02 Hypoxemia; E86.0 Dehydration; R00.0 Tachycardia, unspecified; E87.70 Fluid overload, unspecified
CPT/HCPCS: 36415; 36569; 71045-TC-FY; 71250-TC; 74176-TC; 74177-TC; 77001-TC-FY; 80048; 80053; 80061; 81003; 82308; 82465; 82550; 82553; 82607; 82728; 82746; 82962; 83036; 83540; 83550; 83605; 83615; 83690; 83735; 84100; 84443; 84478; 84484; 85025; 85027; 85045; 85384; 85610; 85651; 85730; 86140; 87040; 93005; 93010; 93306-TC; 93971; 97116-GP; 97161-GP; 99285-25; C1751; C9803-CS; J1100; J1756; Q9967; U0003; U0005